=== PATIENT | female | born 1980 | race Two or more races ===

== ENCOUNTER 2023-06-21 10:47 | Emergency (ER) | payer OTHER ==
[~2023-06-21] VITALS: Ht 154.9 cm; Wt 68.0 kg
[2023-06-21] MEDS ORDERED: NORVASC2.5 M1 PO (11:37)
[2023-06-21 12:51] LABS: HEMATOCRIT 36.8 % (36.0-45.00); HEMOGLOBIN 12.5 g/dL (12.0-15.00); MEAN CELL VOLUME 89.5 fL (80.00-100.00); MEAN CORPUSCULAR HEMOGLOBIN 30.3 pg (27.00-32.0); MEAN CORPUSCULAR HGB CONC 33.9 g/dl (32.0-36.0); PLATELET COUNT 293 K/uL (150-450); RED BLOOD COUNT 4.11 M/uL (4.00-6.00); RED CELL DISTRIBUTION WIDTH 14.8 % (11.5-14.5)
[2023-06-21 13:40] LABS: CALCIUM 9.4 mg/dL (8.5-10.1); CREATININE SERUM 0.62 mg/dL (0.55-1.02); GFR 106.61; POTASSIUM 4.35 mEq/L (3.5-5.1)
[2023-06-21] MEDS ORDERED: FAMOTIDINE/PF 20 MG/2 ML VIAL IV PUSH STA (13:58)
== END 2023-06-21 14:07 | disposition home or self-care (01) ==
LOC: ER 10:48
PROVIDERS: General Practice
DX: K29.70 Gastritis, unspecified, without bleeding (principal)